=== PATIENT | female | born 1950 | race Caucasian/White ===

== ENCOUNTER → 2024-11-04 | Outpatient (CLI) | payer OTHER, MEDICAID, SELFPAY ==
--- NOTE | 2024-11-04 | XR_ITS ---
Examination: PA lateral chest 2 views TECHNIQUE: Upright PA lateral chest 2 views Exam date and time: November 04, 2024 1228 hours Comparison November 08, 2019 INDICATIONS: Diagnosis coccidiomycosis 1983 coughing shortness of breath 9 months. FINDINGS: Normal heart size Mild scarring in the lingular segment No lobar pneumonia Prominent osteopenia IMPRESSION: No pneumonia or pulmonary edema
[2024-11-04 13:16] LABS: Basophils # (Auto) 0.1 Thou/mm3 (0.0-0.2); Basophils % (Auto) 1 % (0-2.5); Eosinophils # (Auto) 0.5 Thou/mm3 (0.0-0.5); Eosinophils % (Auto) 5 % (0-10); Hematocrit 36.7 % (36.0-46.0); Hemoglobin 11.9 g/dL (12.0-16.0); Immature Granulocytes % (Auto) 0 % (0-0); Immature Granulocytes Auto 0.04 Thou/mm3 (0.00-0.00); Lymphocytes # (Auto) 2.9 Thou/mm3 (1.0-4.8); Lymphocytes % (Auto) 28 % (10-50); Mean Corpuscular HGB Conc 32.4 g/dl (31.0-37.0); Mean Corpuscular Hemoglobin 29.4 pg (25.0-35.0); Mean Corpuscular Volume 91 fL (80-100); Monocytes # (Auto) 0.6 Thou/mm3 (0.0-0.8); Monocytes % (Auto) 6 % (0-12); Neutrophils # (Auto) 6.3 Thou/mm3 (1.8-7.7); Neutrophils % (Auto) 61 % (37-80); Nucleated Red Blood Cell % 0 /100 WBC (0); Platelet Count 350 Thou/mm3 (140-440); RDW Standard Deviation 46.2 fL (36.4-46.3); Red Blood Count 4.05 Miln/mm3 (4.00-5.20); White Blood Count 10.4 Thou/mm3 (3.6-11.0)
[2024-11-04 13:48] LABS: Alanine Aminotransferase < 7 U/L (10-49); Albumin, Serum 4.5 gm/dL (3.4-4.8); Alkaline Phosphatase 74 U/L (46-116); Anion Gap 7 (7-16); Aspartate Amino Transferase 11 U/L (0-34); BUN/Creatinine Ratio 16 Ratio (12-20); Bilirubin,Direct 0.1 mg/dL (0.0-0.3); Bilirubin,Total 0.5 mg/dL (0.3-1.2); Blood Urea Nitrogen 11 mg/dL (9-23); Calcium 9.3 mg/dL (8.3-10.6); Carbon Dioxide 28.6 mMol/L (20.0-31.0); Cardiac Risk Estimate 2.7 RATIO (3.7-5.6); Chloride 101 mMol/L (98-107); Cholesterol 215 mg/dL (132-200); Creatinine (Component) 0.7 mg/dL (0.6-1.3); Free T4 (Free Thyroxine) 0.97 ng/dL (0.89-1.76); Glucose 88 mg/dL (74-106); HDL Cholesterol 80 mg/dL (40-60); LDL Cholesterol,Calculated 109 mg/dL (0-130); Osmolality,Calculated 272 (275-295); Potassium 4.4 mMol/L (3.4-5.1); Sodium 137 mMol/L (136-145); Thyroid Stimulating Hormone 3.21 uIU/mL (0.55-4.78); Total Protein 7.2 gm/dL (5.7-8.2); Triglycerides 132 mg/dL (30-150); eGFR > 60 See Note
== END | disposition home or self-care (01) ==
LOC: CDIM 11:57 → COPL 12:41
PROVIDERS: PCP Family Medicine; Referring Provider Family Medicine; Visit Provider Radiology Diagnostic Radiology
DX: R06.02 Shortness of breath (principal); E78.5 Hyperlipidemia, unspecified; E03.9 Hypothyroidism, unspecified; M79.7 Fibromyalgia
CPT/HCPCS: 36415; 71046; 80048; 80061; 80076; 84439; 84443; 85025

== ENCOUNTER 2024-11-13 09:58 | Emergency (ER) | payer OTHER, SELFPAY ==
[2024-11-13 10:23] VITALS: BP 135/84; PULSE 92; RESP 18; TEMP 36.5; O2SAT 98; BMI 24.9
--- NOTE | 2024-11-13 10:24 | PD.EDRME ---
Rapid Medical Screening Exam RME Arrival date/time: 11/13/24 09:58 Chief Complaint: General Adult/Misc Complain Time Seen by Provider: 11/13/24 10:08 Vital signs: Vital Signs Temperature 97.7 F 11/13/24 10:23 Pulse Rate 92 11/13/24 10:23 Respiratory Rate 18 11/13/24 10:23 Blood Pressure 135/84 H 11/13/24 10:23 Pulse Oximetry (%) 98 11/13/24 10:23 Oxygen Delivery Method Room Air 11/13/24 10:23 RME Narrative: generalized pain x2 days. Hx lupus, takes norco at home.
[2024-11-13 10:58] LABS: Basophils # (Auto) 0.1 Thou/mm3 (0.0-0.2); Basophils % (Auto) 0 % (0-2.5); Eosinophils # (Auto) 0.2 Thou/mm3 (0.0-0.5); Eosinophils % (Auto) 1 % (0-10); Hemoglobin 13.8 g/dL (12.0-16.0); Immature Granulocytes % (Auto) 1 % (0-0); Immature Granulocytes Auto 0.13 Thou/mm3 (0.00-0.00); Lymphocytes # (Auto) 3.1 Thou/mm3 (1.0-4.8); Lymphocytes % (Auto) 17 % (10-50); Mean Corpuscular HGB Conc 32.9 g/dl (31.0-37.0); Mean Corpuscular Volume 88 fL (80-100); Monocytes % (Auto) 6 % (0-12); Neutrophils # (Auto) 13.5 Thou/mm3 (1.8-7.7); Neutrophils % (Auto) 75 % (37-80); Nucleated Red Blood Cell % 0 /100 WBC (0); Platelet Count 434 Thou/mm3 (140-440); RDW Standard Deviation 42.3 fL (36.4-46.3); Red Blood Count 4.76 Miln/mm3 (4.00-5.20)
[2024-11-13 11:06] LABS: Sed Rate (ESR) 116 mm/hr (0-30)
[2024-11-13 11:28] LABS: Alanine Aminotransferase < 7 U/L (10-49); Albumin/Globulin Ratio 1.4 (1.2-2.2); Alkaline Phosphatase 146 U/L (46-116); Anion Gap 9 (7-16); Aspartate Amino Transferase 12 U/L (0-34); BUN/Creatinine Ratio 15 Ratio (12-20); Bilirubin,Total 0.5 mg/dL (0.3-1.2); Blood Urea Nitrogen 12 mg/dL (9-23); C-Reactive Protein 19.5 mg/dL (0.0-0.9); Calcium 9.8 mg/dL (8.3-10.6); Calcium (Corrected) 9.8 mg/dL (8.5-10.1); Chloride 91 mMol/L (98-107); Creatinine (Component) 0.8 mg/dL (0.6-1.3); Estimated Creatinine Clearance 59.3 mL/min (>60); Globulin 3.5 gm/dL (2.3-3.5); Glucose 111 mg/dL (74-106); Osmolality,Calculated 263 (275-295); Potassium 3.2 mMol/L (3.4-5.1); Sodium 131 mMol/L (136-145); Total Protein 8.5 gm/dL (5.7-8.2); eGFR > 60 See Note
--- NOTE | 2024-11-13 13:37 | XR_ITS ---
Examination: CT brain head without contrast. 2-D sagittal coronal reconstructions Date and time of exam:November 13, 2024 1417 hours INDICATIONS: Right-sided headaches beginning 7 days ago CTDI: vol (mGy):43.4 DLP: (mGycm):889 Technique: Multiple CT axial sections of the brain have been obtained, 5 mm slice thickness. Contrast has not been administered. 2-D sagittal, coronal reconstructions have been obtained Low dose protocols were performed. One or more of the following dose reduction techniques were used; automated exposure control, adjustment of the mA and/or KV according to patient size, use of iterative reconstruction technique. Findings: No significant ventricular enlargement. Intra-axial or extra-axial hemorrhage density is not seen. No mass effect or midline shift Basal cisterns are not remarkable. Fourth ventricle is midline. Cranial vault intact. Impression: Negative for acute hemorrhage, mass effect or midline shift
--- NOTE | 2024-11-13 13:39 | EDNOTE_ITS ---
ED General RME/HPI General Chief complaint: General Adult/Misc Complain Stated complaint: GENERALIZED PAIN X 5-7 DAYS Time Seen by Provider: 11/13/24 10:08 Arrival date/time: 11/13/24 09:58 RME / HPI RME / HPI narrative: 73-year-old female patient with significant history of lupus, chronic pain, came in for evaluation regarding worsening neck pain, shoulder pain, hip pain, and headache has been ongoing for the last 1 week, getting worse for the last 2 days. Severity of symptoms moderate. Patient denies any fever. Denies any cough denies any abdominal pain denies any dysuria denies any other complaints. Patient been taking her [place] with no relief of pain. Related Data Home Medications ?Medication ?Instructions ?Recorded ?Confirmed diphenhydramine HCl 25 mg capsule 50 mg PO Q6H PRN Rash 09/11/19 03/16/24 (Benadryl) gabapentin 600 mg tablet 600 mg PO TID 09/11/19 03/16/24 omeprazole 20 mg tablet,delayed 20 mg PO QDAY 09/11/19 03/16/24 release ropinirole 2 mg tablet 2 mg PO QPM 09/11/19 03/16/24 levothyroxine 88 mcg tablet 88 mcg PO QAM 11/08/19 03/16/24 (Synthroid) conjugated estrogens 0.625 mg 0.625 mg PO QDAY 09/06/22 03/16/24 tablet (Premarin) estradiol 0.01% (0.1 mg/gram) 2 g vaginal DIRECTED 09/06/22 03/16/24 vaginal cream (Estrace) hydrochlorothiazide 50 mg tablet 50 mg PO QDAY 09/09/23 03/16/24 vibegron 75 mg tablet (Gemtesa) 75 mg PO QDAY 09/09/23 03/16/24 Previous Rx's ?Medication ?Instructions ?Recorded hydrocodone 5 mg-acetaminophen 325 1 tab PO BID PRN pain #10 tabs 12/30/23 mg tablet prednisone 50 mg tablet 50 mg PO QDAY #7 tabs 11/13/24 Allergies Allergy/AdvReac Type Severity Reaction Status Date / Time latex Allergy Severe Rash Verified 11/13/24 10:00 Penicillins Allergy Severe Rash Verified 11/13/24 10:00 ciprofloxacin [From Cipro] Allergy Rash Verified 11/13/24 10:00 metronidazole Allergy Redness of Verified 11/13/24 10:00 Skin aspirin AdvReac Severe BLEEDING Verified 11/13/24 10:00 ULCER codeine AdvReac Severe NAUSEA,ABD Verified 11/13/24 10:00 PAIN Review of Systems Review of Systems Narrative Review of Systems: Review of system reviewed and within normal limits except mentioned in HPI ED Exam Narrative Physical exam: VITAL SIGNS: Reviewed. GENERAL APPEARANCE: Alert and interactive, follows commands, no acute distress, HEAD AND FACE: Non-traumatic. ENT: PERRL, pink conjunctivitis, eyelid no trauma, Mucous membrane moist. NECK: Supple, nontender, no nuchal rigidity. CHEST: No tenderness, no crepitus, no paradoxical movement, no retractions. LUNGS: Clear, well ventilated, symmetric, no rales, no wheezing, no ronchi, no stridor, good breath sounds bilaterally. HEART: Regular rate, regular rhythm, no murmur, no gallops. ABDOMEN: Soft, positive bowel sounds, nondistended, no guarding, nontender, no rebound, no masses, RECTAL: Deferred. GENITAL: Deferred. NEUROLOGICAL: Gross motor function intact sensory function intact, Appropriate for age. MUSCULOSKELETAL: low back nontender, full range of motion. EXTREMITIES: Nontender, full range of motion. SKIN: Color pink, dry, no rash, no lacerations, no abrasions, no contusions. LYMPHATICS: Deferred. Course Quality Measures none Orders Category Date Time Status CT head/brain wo con Stat Exams 11/13/24 13:37 Completed CBC Stat Lab 11/13/24 10:37 Completed CMP [Comprehensive Metabolic Panel] Stat Lab 11/13/24 10:37 Completed CRP [C-Reactive Protein] Stat Lab 11/13/24 10:37 Completed ESR [Sed Rate (ESR)] Stat Lab 11/13/24 10:37 Completed Dexamethasone Inj [Decadron Inj] Med 11/13/24 13:37 Discontinued 10 mg PO X1 ONE HYDROcodone/APAP 10/325 [[place] 10/325] Med 11/13/24 13:37 Discontinued 1 tab PO X1 ONE Vital Signs Vital signs: Vital Signs Temperature 97.7 F 11/13/24 10:23 Pulse Rate 92 11/13/24 10:23 Respiratory Rate 18 11/13/24 10:23 Blood Pressure 135/84 H 11/13/24 10:23 Pulse Oximetry (%) 98 11/13/24 10:23 Oxygen Delivery Method Room Air 11/13/24 10:23 MDM Patient data External records reviewed:: None Clinical information provided by:: none Social determinants that could affect healthcare access:: none (None) Patient has the following chronic illnesses:: History of lupus How is presenting disease/condition affected by chronic disease/condition?: e xacerbated by Evaluation data The following diagnostics were reviewed and interpreted by me:: lab results Lab and/or radiology exams considered but not ordered:: None Interpretation Summary: CBC showed leukocytosis of 18,[address] scan of the head came back unremarkable. Medications Medications considered but not ordered:: None Medication administrations:: Medication Administration History Discontinued Medications Hydrocodone Bitart/Acetaminophen (Hydrocodone/Apap 10/325 Tab) 1 tab PO X1 ONE Stop: 11/13/24 13:38 Last Admin: 11/13/24 15:26 Dose: 1 tab Documented By: WADE Dexamethasone Sodium Phosphate (Dexamethasone Sod Phos Inj 10 Mg/Ml Vial) 10 mg PO X1 ONE Stop: 11/13/24 13:38 Last Admin: 11/13/24 15:26 Dose: 10 mg Documented By: WADE Decadron and [place] Consultations Consultation(s) initiated? (list below): No Consultation #1 (Physician, Specialty, Details): None Diagnosis Differential Diagnosis ED Complaint MDM: Polyarthralgia, Lupus flare off, headache Most likely diagnosis given after review of the tests above:: Polyarthralgia, history of lupus, headache Admission Indicated Admission indicated?: not indicated Explain why admission is indicated or not indicated:: Stable Admission Request Was there a request for admission?: No Disposition Plan Disposition Plan: Discharge Discharge Attestation Discharge Attestation: The patient and all family members were given an opportunity to ask questions and understood the discharge instructions. Discharge instructions specifically effects, indications for sooner follow up or return to the emergency department, and the expected course of current diagnosis. Patient condition: Stable Medical Decision Making MDM Narrative MDM Narrative: 73-year-old female patient with significant history of lupus, chronic pain, came in for evaluation regarding worsening neck pain, shoulder pain, hip pain, and headache has been ongoing for the last 1 week, getting worse for the last 2 days. Severity of symptoms moderate. Patient denies any fever. Denies any cough denies any abdominal pain denies any dysuria denies any other complaints. Patient been taking her [place] with no relief of pain. Patient's workup today all came back with leukocytosis, otherwise unremarkable. Patient CT head came back unremarkable. Patient was given Decadron and [place] with significant improvement of multiple joint pains and headache. Patient stable for discharge Differential Diagnosis Differential Diagnosis: Polyarthralgia, Lupus flare off, headache Lab Data 11/13/24 10:37 11/13/24 10:37 Labs: Lab Results 11/13/24 Range/Units 10:37 WBC 18.0 H (3.6-11.0) Thou/mm3 RBC 4.76 (4.00-5.20) Miln/mm3 Hgb 13.8 (12.0-16.0) g/dL Hct 42.0 (36.0-46.0) % MCV 88 (80-100) fL MCH 29.0 (25.0-35.0) pg MCHC 32.9 (31.0-37.0) g/dl RDW Std Deviation 42.3 (36.4-46.3) fL Plt Count 434 D (140-440) Thou/mm3 Neut % (Auto) 75 (37-80) % Lymph % (Auto) 17 (10-50) % [place] % (Auto) 6 (0-12) % Eos % (Auto) 1 (0-10) % Baso % (Auto) 0 (0-2.5) % Neut # (Auto) 13.5 H (1.8-7.7) Thou/mm3 Lymph # (Auto) 3.1 (1.0-4.8) Thou/mm3 [place] # (Auto) 1.0 H (0.0-0.8) Thou/mm3 Eos # (Auto) 0.2 (0.0-0.5) Thou/mm3 Baso # (Auto) 0.1 (0.0-0.2) Thou/mm3 Immature Gran # (Auto) 0.13 H (0.00-0.00) Thou/mm3 Absolute Nucleated RBC 0.00 (0.00-0.00) Thou/mm3 Immature Gran % 1 H (0-0) % Nucleated RBC % 0 (0) /100 WBC ESR 116 H (0-30) mm/hr Sodium 131 L (136-145) mMol/L Potassium 3.2 L (3.4-5.1) mMol/L Chloride 91 L (98-107) mMol/L Carbon Dioxide 31.0 (20.0-31.0) mMol/L Anion Gap 9 (7-16) BUN 12 (9-23) mg/dL Creatinine 0.8 (0.6-1.3) mg/dL Estim Creat Clear Calc 59.3 L (>60) mL/min eGFR > 60 (60 - ) See Note BUN/Creatinine Ratio 15 (12-20) Ratio Glucose 111 H (74-106) mg/dL Calculated Osmolality 263 L (275-295) Calcium 9.8 (8.3-10.6) mg/dL Corrected Calcium 9.8 (8.5-10.1) mg/dL Total Bilirubin 0.5 (0.3-1.2) mg/dL AST 12 (0-34) U/L ALT < 7 L (10-49) U/L Alkaline Phosphatase 146 H (46-116) U/L C-Reactive Prot, Quant 19.5 H (0.0-0.9) mg/dL Total Protein 8.5 H (5.7-8.2) gm/dL Albumin 5.0 H (3.4-4.8) gm/dL Globulin 3.5 (2.3-3.5) gm/dL Albumin/Globulin Ratio 1.4 (1.2-2.2) Discharge Plan Plan Patient Disposition: HOME (Self Care) Disposition Comment: stable Prescriptions/Referrals Prescriptions/Med Rec: New prednisone 50 mg tablet 50 mg PO QDAY Qty: 7 0RF No Action Premarin 0.625 mg tablet 0.625 mg PO QDAY estradiol [Estrace] 0.01 % (0.1 mg/gram) cream 2 g vaginal DIRECTED Patient Comments: twice a week hydrochlorothiazide 50 mg tablet 50 mg PO QDAY Gemtesa 75 mg tablet 75 mg PO QDAY levothyroxine [Synthroid] 88 mcg Tablet 88 mcg PO QAM ropinirole 2 mg Tablet 2 mg PO QPM omeprazole 20 mg Tablet,Delayed Release (Dr/Ec) 20 mg PO QDAY gabapentin 600 mg Tablet 600 mg PO TID diphenhydramine HCl [Benadryl] 25 mg capsule 50 mg PO Q6H PRN (Reason: Rash) Hold Instructions: Resume on 04/25/22. hydrocodone-acetaminophen 5-325 mg tablet 1 tab PO BID MDD 10 PRN (Reason: pain) Qty: 10 0RF Referrals: Conrado Sam MD [Primary Care Provider] - In 1 week Problem List Clinical Impression: Headache, Polyarthralgia, History of lupus Patient/Caregiver Discharge Instructions Discharge Activity: activity as tolerated Education Materials: ED Arthralgia Additional Instructions: Thank you for the opportunity for serving you today. You are stable for discharged . You are advised to: Follow-up with your PCP in 1 to 2 days Return to ED for worsening of symptoms Increase oral fluids Take medication as prescribed Continue taking your [place] Print Language: Dominican Stand Alone Forms: Katharine Award Info., Patient Portal Info Letter PA/ELVIE Supervising Physician RONALD/ELVIE Supervising Physician: MD Tania
[2024-11-13 14:36] VITALS: BP 155/76; PULSE 77; RESP 18; TEMP 36.7; O2SAT 95
[2024-11-13 15:03] VITALS: BP 145/76; PULSE 79; RESP 19; TEMP 36.7; O2SAT 93
[2024-11-13] MEDS: HYDROcodone/APAP 10/325 TAB PO (15:26)
[2024-11-13] MEDS: DEXAMETHASONE SOD PHOS INJ 10 MG/ML VIAL PO (15:26)
[2024-11-13 16:19] VITALS: BP 145/74; PULSE 84; RESP 16; TEMP 36.7; O2SAT 91
[2024-11-13 17:21] VITALS: BP 153/86; PULSE 81; RESP 16; TEMP 36.6; O2SAT 93
== END 2024-11-13 17:25 | disposition home or self-care (01) ==
PROVIDERS: Physician Assistant; Emergency Provider Emergency Medicine; PCP Family Medicine
DX: R51.9 Headache, unspecified (principal); M25.519 Pain in unspecified shoulder; M25.559 Pain in unspecified hip
CPT/HCPCS: 36415; 70450; 80053; 85025; 85652; 86140; 99284; J1100; A9270

== ENCOUNTER 2025-03-31 15:53 | Emergency (ER) | payer OTHER, MEDICAID, SELFPAY ==
[2025-03-31 16:07] VITALS: BP 176/74; PULSE 89; RESP 18; TEMP 36.6; O2SAT 95; BMI 31.7
--- NOTE | 2025-03-31 16:14 | PD.EDUPEX ---
Upper Extremity Injury RME/HPI General Chief Complaint: Extremity Injury, Upper Stated Complaint: LEFT ARM/KNEE PAIN SP FALL Time Seen by Provider: 03/31/25 16:04 Arrival date/time: 03/31/25 15:53 RME / HPI RME / HPI narrative: 74-year-old female patient came in for evaluation regarding ground-level fall patient was in the insurance company office, and tripped on a carpet resulting in the fall patient sustained abrasion to the left wrist ulnar aspect, and abrasion to the left knee anterior, severity mild. Patient is complaining of knee pain, described as dull ache, severity mild. Full range of motion of the knee noted. Also complaining of wrist pain. Full range of motion of the wrist noted, no deformity. Patient does not believe that he had broken bone. Patient is able to ambulate without limping. Denies any LOC denies any neck pain. Related Data Home Medications ?Medication ?Instructions ?Recorded ?Confirmed diphenhydramine HCl 25 mg capsule 50 mg PO Q6H PRN Rash 09/11/19 03/16/24 (Benadryl) Held on 04/24/22. Instructions: Resume on 04/25/22. gabapentin 600 mg tablet 600 mg PO TID 09/11/19 03/16/24 omeprazole 20 mg tablet,delayed 20 mg PO QDAY 09/11/19 03/16/24 release ropinirole 2 mg tablet 2 mg PO QPM 09/11/19 03/16/24 levothyroxine 88 mcg tablet 88 mcg PO QAM 11/08/19 03/16/24 (Synthroid) conjugated estrogens 0.625 mg 0.625 mg PO QDAY 09/06/22 03/16/24 tablet (Premarin) estradiol 0.01% (0.1 mg/gram) 2 g vaginal DIRECTED 09/06/22 03/16/24 vaginal cream (Estrace) hydrochlorothiazide 50 mg tablet 50 mg PO QDAY 09/09/23 03/16/24 vibegron 75 mg tablet (Gemtesa) 75 mg PO QDAY 09/09/23 03/16/24 Previous Rx's ?Medication ?Instructions ?Recorded hydrocodone 5 mg-acetaminophen 325 1 tab PO BID PRN pain #10 tabs 12/30/23 mg tablet prednisone 50 mg tablet 50 mg PO QDAY #7 tabs 11/13/24 Allergies Allergy/AdvReac Type Severity Reaction Status Date / Time latex Allergy Severe Rash Verified 11/13/24 10:00 Penicillins Allergy Severe Rash Verified 11/13/24 10:00 ciprofloxacin (From Cipro) Allergy Rash Verified 11/13/24 10:00 metronidazole Allergy Redness of Verified 11/13/24 10:00 Skin aspirin AdvReac Severe BLEEDING Verified 11/13/24 10:00 ULCER codeine AdvReac Severe NAUSEA,ABD Verified 11/13/24 10:00 PAIN Review of Systems Review of Systems Narrative Review of Systems: Review of system reviewed and within normal limits except mentioned in HPI ED Exam Narrative Physical exam: VITAL SIGNS: Reviewed. GENERAL APPEARANCE: Alert and interactive, follows commands, no acute distress, HEAD AND FACE: Non-traumatic. ENT: PERRL, pink conjunctivitis, eyelid no trauma, Mucous membrane moist. NECK: Supple, nontender, no nuchal rigidity. CHEST: No tenderness, no crepitus, no paradoxical movement, no retractions. LUNGS: Clear, well ventilated, symmetric, no rales, no wheezing, no ronchi, no stridor, good breath sounds bilaterally. HEART: Regular rate, regular rhythm, no murmur, no gallops. ABDOMEN: Soft, positive bowel sounds, nondistended, no guarding, nontender, no rebound, no masses, RECTAL: Deferred. GENITAL: Deferred. NEUROLOGICAL: Gross motor function intact sensory function intact, Appropriate for age. MUSCULOSKELETAL: low back nontender, full range of motion. EXTREMITIES: Left anterior knee abrasion, no deformity no crepitus, full range of motion of the knee. Left wrist abrasion, ulnar side, full range of motion of the wrist no deformity no crepitus SKIN: Color pink, dry, no rash, no lacerations, no abrasions, no contusions. LYMPHATICS: Deferred. Course Quality Measures none Orders Category Date Time Status Ketorolac Inj [Toradol Inj] Med 03/31/25 16:13 Once 15 mg IM X1 ONE Vital Signs Vital signs: Vital Signs Temperature 97.8 F 03/31/25 16:07 Pulse Rate 89 03/31/25 16:07 Respiratory Rate 18 03/31/25 16:07 Blood Pressure 176/74 H 03/31/25 16:07 Pulse Oximetry (%) 95 03/31/25 16:07 Oxygen Delivery Method Room Air 03/31/25 16:07 Extremity Injury MDM Narrative MDM Narrative:: 74-year-old female patient came in for evaluation regarding ground-level fall patient was in the insurance company office, and tripped on a carpet resulting in the fall patient sustained abrasion to the left wrist ulnar aspect, and abrasion to the left knee anterior, severity mild. Patient is complaining of knee pain, described as dull ache, severity mild. Full range of motion of the knee noted. Also complaining of wrist pain. Full range of motion of the wrist noted, no deformity. Patient does not believe that he had broken bone. Patient is able to ambulate without limping. Denies any LOC denies any neck pain. Imaging is not needed at this time, patient is able to bend and extend the wrist without any limitation. Able to bend and extend the knee without any limitation. No deformity noted also. Patient appears nontoxic and hemodynamically stable. Patient discharged home and instructed to follow-up with primary care provider in 24 to 48 hours. Instructed to return to the emergency department immediately if worsening of symptoms Patient data External records reviewed:: None Clinical information provided by:: patient Social determinants that could affect healthcare access:: none Patient has the following chronic illnesses:: Hypertension hypothyroidism restless leg syndrome How is presenting disease/condition affected by chronic disease/condition?: uneffected by Evaluation data The following diagnostics were reviewed and interpreted by me:: other (specify) (None none) Lab and/or radiology exams considered but not ordered:: None Interpretation Summary: None Medications / Prescriptions Medications or Prescriptions considered but not ordered:: None Medication administrations:: Medication Administration History Ketorolac Tromethamine (Ketorolac Inj 60 Mg/2 Ml Vial) 15 mg IM X1 ONE Stop: 03/31/25 16:14 Toradol IM Consultations Consultation(s) initiated? (list below): No Diagnosis Upper Extremity Injury Differential Diagnosis: sprain and strain of wrist and other (Knee abrasions wrist abrasions status post fall) Most likely diagnosis given after review of the tests above:: Knee abrasions, wrist abrasions, status post fall Admission Indicated Admission indicated?: not indicated Admission Request Was there a request for admission?: No Disposition Plan Disposition Plan: Discharge Discharge Attestation Discharge Attestation: The patient was given an opportunity to ask questions and understood the discharge instructions. Discharge instructions specifically effects, indications for sooner follow up or return to the emergency department, and the expected course of current diagnosis. Patient condition: Stable Discharge Plan Plan Patient Disposition: HOME (Self Care) Disposition Comment: Stable Prescriptions/Referrals Prescriptions/Med Rec: No Action Premarin 0.625 mg tablet 0.625 mg PO QDAY estradiol [Estrace] 0.01 % (0.1 mg/gram) cream 2 g vaginal DIRECTED Patient Comments: twice a week hydrochlorothiazide 50 mg tablet 50 mg PO QDAY Gemtesa 75 mg tablet 75 mg PO QDAY levothyroxine [Synthroid] 88 mcg Tablet 88 mcg PO QAM ropinirole 2 mg Tablet 2 mg PO QPM omeprazole 20 mg Tablet,Delayed Release (Dr/Ec) 20 mg PO QDAY gabapentin 600 mg Tablet 600 mg PO TID diphenhydramine HCl [Benadryl] 25 mg capsule 50 mg PO Q6H PRN (Reason: Rash) hydrocodone-acetaminophen 5-325 mg tablet 1 tab PO BID MDD 10 PRN (Reason: pain) Qty: 10 0RF prednisone 50 mg tablet 50 mg PO QDAY Qty: 7 0RF Problem List Clinical Impression: Abrasion of wrist, Abrasion of knee, Fall Patient/Caregiver Discharge Instructions Discharge Activity: activity as tolerated Education Materials: ED Abrasions Additional Instructions: Thank you for the opportunity for serving you today. You are stable for discharged . You are advised to: Follow-up with your PCP in 1 to 2 days Return to ED for worsening of symptoms Increase oral fluids Take your pain medication as needed for pain Print Language: Cymro Stand Alone Forms: Katharine Award Info., Patient Portal Info Letter RONALD/ELVIE Supervising Physician RONALD/ELVIE Supervising Physician: MD Kamron
[2025-03-31] MEDS: KETOROLAC INJ 60 MG/2 ML VIAL 15 MG IM (16:34)
== END 2025-03-31 17:03 | disposition home or self-care (01) ==
LOC: SERX 16:50
PROVIDERS: Emergency Provider Emergency Medicine; PCP Family Medicine
DX: S80.212A Abrasion, left knee, initial encounter (principal); S60.812A Abrasion of left wrist, initial encounter; W18.30XA Fall on same level, unspecified, initial encounter
CPT/HCPCS: 96372; 99283; J1885

== ENCOUNTER 2025-11-06 12:37 | Emergency (ER) | payer OTHER, MEDICAID, SELFPAY ==
[2025-11-06 12:52] VITALS: BP 149/73; PULSE 87; RESP 18; TEMP 36.9; O2SAT 95; BMI 25.6
--- NOTE | 2025-11-06 13:37 | PD.EDBACK ---
ED Back Injury Pain RME/HPI General Chief Complaint: Back Pain/Injury Stated Complaint: Left lower back that goes to left hip Time Seen by Provider: 11/06/25 13:24 Arrival date/time: 11/06/25 12:37 Limitations: no limitations RME / HPI RME / HPI Narrative: 74-year-old female with known osteoarthritis of the lumbar spine and disc bulging here for worsening back pain. Has pain contract for [employer] 04/03/2025 twice daily and daytime tramadol. No loss of bowel or bladder control. States this time the pain feels a little more severe. Has been a long time since her last imaging. No burning with urination. Took a [employer] this morning not helping. No recent falls. No recent trauma. Patient states also has history of lupus. Related Data Home Medications ?Medication ?Instructions ?Recorded ?Confirmed diphenhydramine HCl 25 mg capsule 50 mg PO Q6H PRN Rash 09/11/19 03/16/24 (Benadryl) Held on 04/24/22. Instructions: Resume on 04/25/22. gabapentin 600 mg tablet 600 mg PO TID 09/11/19 03/16/24 omeprazole 20 mg tablet,delayed 20 mg PO QDAY 09/11/19 03/16/24 release ropinirole 2 mg tablet 2 mg PO QPM 09/11/19 03/16/24 levothyroxine 88 mcg tablet 88 mcg PO QAM 11/08/19 03/16/24 (Synthroid) conjugated estrogens 0.625 mg 0.625 mg PO QDAY 09/06/22 03/16/24 tablet (Premarin) estradiol 0.01% (0.1 mg/gram) 2 g vaginal DIRECTED 09/06/22 03/16/24 vaginal cream (Estrace) hydrochlorothiazide 50 mg tablet 50 mg PO QDAY 09/09/23 03/16/24 vibegron 75 mg tablet (Gemtesa) 75 mg PO QDAY 09/09/23 03/16/24 Previous Rx's ?Medication ?Instructions ?Recorded hydrocodone 5 mg-acetaminophen 325 1 tab PO BID PRN pain #10 tabs 12/30/23 mg tablet prednisone 50 mg tablet 50 mg PO QDAY #7 tabs 11/13/24 baclofen 10 mg tablet 10 mg PO .qhs #30 tabs 11/06/25 Allergies Allergy/AdvReac Type Severity Reaction Status Date / Time latex Allergy Severe Rash Verified 11/06/25 12:42 Penicillins Allergy Severe Rash Verified 11/06/25 12:42 ciprofloxacin (From Cipro) Allergy Rash Verified 11/06/25 12:42 metronidazole Allergy Redness of Verified 11/06/25 12:42 Skin aspirin AdvReac Severe BLEEDING Verified 11/06/25 12:42 ULCER codeine AdvReac Severe NAUSEA,ABD Verified 11/06/25 12:42 PAIN Review of Systems Review of Systems Systems Reviewed: All systems reviewed, normal except as documented Constitutional Constitutional: Denies fever(s) Musculoskeletal Musculoskeletal: Reports as per HPI ED Exam General Limitations: Present no limitations General appearance: Present alert and in no apparent distress Eye Eye exam: Present normal appearance, PERRL and EOMI Respiratory Respiratory exam: Present normal lung sounds bilaterally Cardiovascular Cardiovascular exam: Present regular rate, normal rhythm and normal heart sounds Abdominal Exam Abdominal exam: Present soft and normal bowel sounds Extremities Exam Extremities exam: Present normal inspection and full ROM Back Exam Back exam: Present normal inspection, full ROM and tenderness (lumbar and left sciatic knotch ttp ) Psychiatric Psychiatric exam: Present normal affect and normal mood Skin Skin exam: Present warm, dry, intact and normal color Course Quality Measures none Orders Category Date Time Status CT lumbar spine wo con Stat Exams 11/06/25 13:40 Completed Drug Screen,Urine Stat Lab 11/06/25 14:38 Completed UA [Urinalysis] Stat Lab 11/06/25 14:38 Completed dexAMETHasone INJ [Decadron Inj] Med 11/06/25 13:40 Discontinued 10 mg PO X1 ONE oxyCODONE/APAP 5/325 [Percocet 5/325] Med 11/06/25 13:40 Discontinued 1 tab PO X1 ONE Vital Signs Vital signs: Vital Signs Temperature 98.4 F 11/06/25 12:52 Pulse Rate 87 11/06/25 12:52 Respiratory Rate 18 11/06/25 12:52 Blood Pressure 149/73 H 11/06/25 12:52 Pulse Oximetry (%) 95 11/06/25 12:52 Oxygen Delivery Method Room Air 11/06/25 12:52 Back Pain / Injury MDM Narrative MDM Narrative:: Imaging showed disc bulging and UA did show hematuria advised we will need follow-up for hematuria. Follow-up with PCP return to ER symptoms worsen Patient data External records reviewed:: [facility] previous records Clinical information provided by:: patient Social determinants that could affect healthcare access:: other (specify) (no PCP appointment on weekend) Patient has the following chronic illnesses:: Lupus Lumbar disc bulging How is presenting disease/condition affected by chronic disease/condition?: caused by Evaluation data The following diagnostics were reviewed and interpreted by me:: lab results and radiology exam(s) Lab and/or radiology exams considered but not ordered:: MRI of lumbar spine was considered however unlikely to change the course of treatment today Interpretation Summary: UA no uti but some blood, will need further work up CT lumbar Advanced degenerative disc disease throughout L4-L5 4 mm central lumbar disc bulge appears the worst Medications / Prescriptions Medications or Prescriptions considered but not ordered:: Narcotics were considered for home however patient has pain contract and that is a direct violation of her contract Medication administrations:: Medication Administration History Discontinued Medications Dexamethasone Sodium Phosphate (Dexamethasone Sod Phos Inj 10 Mg/Ml Vial) 10 mg PO X1 ONE Stop: 11/06/25 13:41 Last Admin: 11/06/25 14:20 Dose: 10 mg Documented By: DARNELL Oxycodone/Acetaminophen (Oxycodone/Apap 5/325 Tablet) 1 tab PO X1 ONE Stop: 11/06/25 13:41 Last Admin: 11/06/25 14:20 Dose: 1 tab Documented By: DARNELL See above Consultations Consultation(s) initiated? (list below): No Diagnosis Differential diagnosis back pain/injury: lumbar radiculopathy, sciatica, strain of lumbar region, renal colic and pyelonephritis Most likely diagnosis given after review of the tests above:: chronic back pain due to disc bulge hematuria Admission Indicated Admission indicated?: not indicated Admission Request Was there a request for admission?: No Disposition Plan Disposition Plan: Discharge Discharge Attestation Discharge Attestation: The patient and all family members were given an opportunity to ask questions and understood the discharge instructions. Discharge instructions specifically effects, indications for sooner follow up or return to the emergency department, and the expected course of current diagnosis. Patient condition: Stable Discharge Plan Plan Patient Disposition: HOME (Self Care) Discharge Disposition comment: Follow-up with PCP in 2 to 3 days Prescriptions/Referrals Prescriptions/Med Rec: New baclofen 10 mg tablet 10 mg PO .qhs Qty: 30 0RF No Action Premarin 0.625 mg tablet 0.625 mg PO QDAY estradiol [Estrace] 0.01 % (0.1 mg/gram) cream 2 g vaginal DIRECTED Patient Comments: twice a week hydrochlorothiazide 50 mg tablet 50 mg PO QDAY Gemtesa 75 mg tablet 75 mg PO QDAY levothyroxine [Synthroid] 88 mcg Tablet 88 mcg PO QAM ropinirole 2 mg Tablet 2 mg PO QPM omeprazole 20 mg Tablet,Delayed Release (Dr/Ec) 20 mg PO QDAY gabapentin 600 mg Tablet 600 mg PO TID diphenhydramine HCl [Benadryl] 25 mg capsule 50 mg PO Q6H PRN (Reason: Rash) hydrocodone-acetaminophen 5-325 mg tablet 1 tab PO BID MDD 10 PRN (Reason: pain) Qty: 10 0RF prednisone 50 mg tablet 50 mg PO QDAY Qty: 7 0RF Referrals: Conrado Sam MD [Primary Care Provider, Family Practice] - In 1 week Problem List Clinical Impression: Lumbar radiculopathy, Hematuria Patient/Caregiver Discharge Instructions Education Materials: ED Back Pain (Acute or Chronic) Print Language: Panamanian Stand Alone Forms: Katharine Award Info., Patient Portal Info Letter PA/ACCESS SPECIALIST Supervising Physician PA/ACCESS SPECIALIST Supervising Physician: Dr. del rio
--- NOTE | 2025-11-06 13:40 | XR_ITS ---
Examination: CT lumbar spine, without contrast. 2-D sagittal reconstructions. 2-D coronal reconstructions. 3-D reconstructions. Date and time of exam: November 06, 2025, 1401 hours INDICATIONS: Low back pain radiating to the left hip this week CTDI: vol (mGy): 21.6 DLP: (mGycm): 722 Technique: Multiple 1.25 mm axial sections of the lumbar spine without intravenous contrast 2D sagittal coronal reconstructions FINDINGS: Significant osteopenia. No lumbar fracture. Advanced degenerative disc disease L5-S1, L4-L5 with reactive bony endplate change No spondylolisthesis L5-S1 2 mm central lumbar disc bulge contiguous with the left S1 nerve root L4-L5 4 mm central lumbar disc bulge extending to the foraminal regions with moderate bilateral L4 ganglionic compression L3-L4 no disc protrusion L2-L3 no disc protrusion L1-L2 no disc protrusion IMPRESSION: Advanced degenerative disc disease L5-S1, L4-L5 L5-S1 2 mm central lumbar disc bulge contiguous to the left S1 nerve root L4-L5 4 mm central lumbar disc bulge extending to the foraminal regions with moderate bilateral L4 ganglionic compression have been obtained.
[2025-11-06 14:42] LABS: Collection Type, Urine Clean Catch
[2025-11-06 14:58] LABS: Bacteria,Urine Rare; Bilirubin,Urine Negative (Negative); Blood,Urine Negative (Negative); Clarity,Urine Clear (Clear/Hazy); Color,Urine Yellow (Lt Yel-Yel); Glucose, Urine Negative (Negative); Ketones,Urine Negative (Negative); Leukocyte Esterase,Urine Negative (Negative); Nitrite,Urine Negative (Negative); PH,Urine 7.0 (5.0-7.0); Protein,Urine Trace (Neg - Trace); RBC,Urine 5 /hpf (0-3); Specific Gravity,Urine 1.027 (1.001-1.035); Squamous Epithelial Cell,Urine 6 /hpf (0-5); Urobilinogen,Urine 2.0 mg/dL (0.0-1.0); WBC,Urine 1 /hpf (0-5)
[2025-11-06 15:17] LABS: Amphetamine/Methamp Scrn,U Negative (Negative); Barbiturate Screen,Urine Negative (Negative); Benzodiazepines Screen,Urine Negative (Negative); Benzoylecgonine Screen, Ur Negative (Negative); Fentanyl Screen,Urine Negative (Negative); Opiate Screen,Urine Positive (Negative); THC Screen,Urine Negative (Negative)
[2025-11-06 15:56] VITALS: BP 124/71; PULSE 83; RESP 20; TEMP 36.7; O2SAT 95
== END 2025-11-06 16:19 | disposition home or self-care (01) ==
PROVIDERS: Physician Assistant; Emergency Provider Emergency Medicine; PCP Family Medicine
DX: M51.16 Intervertebral disc disorders with radiculopathy, lumbar region (principal); M47.26 Other spondylosis with radiculopathy, lumbar region; R31.9 Hematuria, unspecified
CPT/HCPCS: 72131; 80307; 81001; 99283; J1100; A9270